=== PATIENT | male | born 1995 | race Caucasian/White ===

== ENCOUNTER 2017-01-06 10:58 | Emergency (ER) | payer MEDICAID, OTHER ==
[~2017-01-06] VITALS: Ht 172.7 cm; Wt 75.0 kg
[~2017-01-06 10:58] MED LIST: CLIN1CAP5 PO
[2017-01-06 11:11] VITALS: BP 152/77; PULSE 65; RESP 18; TEMP 98.6; O2SAT 97
[2017-01-06] MEDS ORDERED: FISH500C (11:15)
[2017-01-06] MEDS ORDERED: CYAN1TAB24 (11:15)
[2017-01-06 13:13] VITALS: BP 132/61; PULSE 73; RESP 20; TEMP 99; O2SAT 98
[2017-01-06 13:19] LABS: AUTOMATED NEUTROPHIL # 7.7 TH/MM3 (1.8-7.7); BASOPHIL # 0.1 TH/MM3 (0-0.2); BASOPHIL % 0.8 % (0.0-2.0); EOSINOPHIL # 0.2 TH/MM3 (0-0.4); EOSINOPHIL % 1.9 % (0.0-4.0); HEMATOCRIT 39.3 % (39.0-51.0); HEMO FLAGS DIFF FINAL; LYMPH % 16.4 % (9.0-44.0); LYMPHOCYTE # 1.7 TH/MM3 (1.0-4.8); MEAN CELL VOLUME 88.2 FL (80.0-100.0); MEAN CORPUSCULAR HEMOGLOBIN 29.7 PG (27.0-34.0); MEAN CORPUSCULAR HGB CONC 33.7 % (32.0-36.0); MONO % 5.8 % (0.0-8.0); NEUT % 75.1 % (16.0-70.0); PLATELET COUNT 215 TH/MM3 (150-450); RED BLOOD COUNT 4.46 MIL/MM3 (4.50-5.90); RED CELL DISTRIBUTION WIDTH 13.3 % (11.6-17.2); WHITE BLOOD COUNT 10.3 TH/MM3 (4.0-11.0)
[2017-01-06 13:29] LABS: AMPHETAMINE, URINE NEG (NEG); BARBITURATES, URINE NEG (NEG); COCAINE, URINE NEG (NEG)
[2017-01-06 13:30] LABS: ALT (GPT) 28 U/L (12-78); ANION GAP 7 MEQ/L (5-15); AST (GOT) 22 U/L (15-37); BICARBONATE 27.9 MEQ/L (21.0-32.0); BLOOD UREA NITROGEN 13 MG/DL (7-18); CHLORIDE 106 MEQ/L (98-107); GLOMERULAR FILTRATION RATE 92 ML/MIN (>89); POTASSIUM 3.9 MEQ/L (3.5-5.1); SODIUM (NA) 141 MEQ/L (136-145)
[2017-01-06 13:31] LABS: ALKALINE PHOSPHATASE 54 U/L (45-117); TOTAL BILIRUBIN ADULT 0.4 MG/DL (0.2-1.0)
--- NOTE | 2017-01-06 13:53 | PD ---
HPI Chief Complaint: Psychiatric Symptoms Time Seen by Provider: 13:50 Travel History International Travel<30 days: No Contact w/Intl Traveler<30days: No Traveled to known affect area: No History of Present Illness HPI 21-year-old male presents to the emergency Department under Aguila act by local police. According the Aguila act, the patient is making suicidal statements. The patient denies this. He does report cutting himself when he is angry. He denies any threat hurt himself. Patient states his tetanus immunization is up- to-date. He states that he has abrasions to the left chest from him hitting himself. He denies any illegal drug use. He does report history of depression and anger issues. [facility] Past Medical History Medical History: Denies Significant Hx Developmental Delay: No Diminished Hearing: No Immunizations Current: Yes Past Surgical History Surgical History: No Previous Surgery Social History Alcohol Use: No Tobacco Use: No Substance Use: No Allergies-Medications (Allergen,Severity, Reaction): Coded Allergies: Gluten (Verified Allergy, Intermediate, Nausea/Vomiting, 01/06/17) Reported Meds & Prescriptions Reported Meds & Active Scripts Active Reported B12 (Cyanocobalamin) 1,000 Mcg Tab 1,000 Fish Oil ([place]-3 Fatty Acids) 500 Mg Cap Review of Systems Except as stated in HPI: all other systems reviewed are Neg Physical Exam Narrative GENERAL: Well-developed well-nourished male patient, ambulatory. Afebrile. SKIN: Warm and dry. Patient has superficial abrasions noted to the left chest. HEAD: Normocephalic. Atraumatic. EYES: No scleral icterus. No injection or drainage. NECK: Supple, trachea midline. No JVD or lymphadenopathy. CARDIOVASCULAR: Regular rate and rhythm without murmurs, gallops, or rubs. RESPIRATORY: Breath sounds equal bilaterally. No accessory muscle use. Lungs sounds are clear to auscultation. GASTROINTESTINAL: Abdomen soft, non-tender, nondistended. MUSCULOSKELETAL: No cyanosis, or edema. PSYCHIATRIC: No delusional thought processes. No hallucinations. Data Data Last Documented VS Vital Signs Date Time Temp Pulse Resp B/P Pulse Ox O2 Delivery O2 Flow Rate FiO2 01/06/17 13:13 99.0 73 20 132/61 98 Room Air Orders Drug Screen, Random Urine (01/06/17 11:18) Complete Blood Count With Diff (01/06/17 12:20) Comprehensive Metabolic Panel (01/06/17 12:20) Psych Screen (01/06/17 12:20) Alcohol (Ethanol) (01/06/17 12:20) Labs Laboratory Tests Test 01/06/17 01/06/17 11:17 12:55 Urine Opiates Screen NEG Urine Barbiturates Screen NEG Urine Amphetamines Screen NEG Urine Benzodiazepines Screen NEG Urine Cocaine Screen NEG Urine Cannabinoids Screen NEG White Blood Count 10.3 TH/MM3 Red Blood Count 4.46 MIL/MM3 Hemoglobin 13.3 GM/DL Hematocrit 39.3 % Mean Corpuscular Volume 88.2 FL Mean Corpuscular Hemoglobin 29.7 PG Mean Corpuscular Hemoglobin 33.7 % Concent Red Cell Distribution Width 13.3 % Platelet Count 215 TH/MM3 Mean Platelet Volume 7.9 FL Neutrophils (%) (Auto) 75.1 % Lymphocytes (%) (Auto) 16.4 % Monocytes (%) (Auto) 5.8 % Eosinophils (%) (Auto) 1.9 % Basophils (%) (Auto) 0.8 % Neutrophils # (Auto) 7.7 TH/MM3 Lymphocytes # (Auto) 1.7 TH/MM3 Monocytes # (Auto) 0.6 TH/MM3 Eosinophils # (Auto) 0.2 TH/MM3 Basophils # (Auto) 0.1 TH/MM3 CBC Comment DIFF FINAL Differential Comment Sodium Level 141 MEQ/L Potassium Level 3.9 MEQ/L Chloride Level 106 MEQ/L Carbon Dioxide Level 27.9 MEQ/L Anion Gap 7 MEQ/L Blood Urea Nitrogen 13 MG/DL Creatinine 1.01 MG/DL Estimat Glomerular Filtration 92 ML/MIN Rate Random Glucose 162 MG/DL Calcium Level 8.9 MG/DL Total Bilirubin 0.4 MG/DL Aspartate Amino Transf 22 U/L (AST/SGOT) Alanine Aminotransferase 28 U/L (ALT/SGPT) Alkaline Phosphatase 54 U/L Total Protein 7.3 GM/DL Albumin 4.3 GM/DL Ethyl Alcohol Level LESS THAN 3 MG/DL MDM Medical Decision Making Medical Screen Exam Complete: Yes Emergency Medical Condition: Yes Medical Record Reviewed: Yes Differential Diagnosis Depression versus anxiety versus anger issues versus substance abuse versus psychosis versus bipolar disorder versus schizophrenia Narrative Course 21-year-old male presents to the emergency Department under Aguila act by local police. He has no medical complaints at this time. CBC is unremarkable. CMP is unremarkable. Urine drug screen is negative. Alcohol level is less than 3. Patient is medically cleared for psychiatric screening and disposition. Mental health screening discussed with the patient. Psychiatric screen ordered. Diagnosis Primary Impression: Excessive anger Additional Impression: Depression Qualified Code: F32.9 - Depression, unspecified depression type Additional Instructions: Patient is medically cleared for psychiatric screening and disposition. Disposition: 01 DISCHARGE HOME Condition: Stable Elin Woodard Jan 06, 2017 13:53
[2017-01-06 18:42] VITALS: BP 145/80; PULSE 60; RESP 18; O2SAT 98
[2017-01-06 22:24] VITALS: BP 135/81; PULSE 67; RESP 18; TEMP 97.5; O2SAT 99
[2017-01-07 02:22] VITALS: BP 164/92; PULSE 61; RESP 16; O2SAT 100
[2017-01-07 06:08] VITALS: BP 164/84; PULSE 50; RESP 18; O2SAT 99
[2017-01-07 09:18] VITALS: BP 164/92; PULSE 73; RESP 20; O2SAT 100
--- NOTE | 2017-01-07 09:33 | PD ---
History of Present Illness Chief Complaint: Psychiatric Symptoms Time Seen by Provider: 09:00 Travel History International Travel<30 Days: No Contact w/Intl Traveler<30days: No Known affected area: No Legal Status Legal Status: Aguila Act Aguila Act Signed By: Brianda Aguila Act Comment: BA signed by: SANGEETA Renee BAdge#[id number],Case# [id number] History of Present Illness: This is a 21-year-old male brought in under a Aguila act for making suicidal threats, according to his . He got into a verbal altercation with his and left the home. Police were called by the girlfriend and he was Aguila acted and brought to [place]. At this time he has been calm and cooperative overnight. He is denying suicidal or homicidal ideation, plan or intent. He plans to move a camper onto his father's property in order to stay separate from his . Apparently they have biological and step children together. The patient is able to verbally contract for safety at this time. He does admit to a history of anger issues and depression. However he is denying symptoms of depression at this time and is smiling and pleasant. He is willing to seek counseling on an outpatient basis. PFSH Past Medical History Medical History: Denies Significant Hx Developmental Delay: No Diminished Hearing: No Immunizations Current: Yes Past Surgical History Surgical History: No Previous Surgery Psychiatric History Psychiatric History Hx Psychiatric Treatment: Yes as a child History of Inpatient Treatment: Yes Guns or firearms in home: No Social History Hx Alcohol Use: No Hx Tobacco Use: No Hx Substance Use: No (De[place]) Hx of Substance Use Treatment: Yes Allergies-Medications (Allergen,Severity, Reaction): Coded Allergies: Gluten (Verified Allergy, Intermediate, Nausea/Vomiting, 01/06/17) Reported Meds & Prescriptions Reported Meds & Active Scripts Active Reported B12 (Cyanocobalamin) 1,000 Mcg Tab 1,000 Fish Oil ([place]-3 Fatty Acids) 500 Mg Cap Review of Systems ROS Limitations: Clinical Condition Except as stated in HPI: all other systems reviewed are Neg Exam Alert: Yes [place]: Person, Place, Date, Situation Mood: Calm Affect: Euthymic Speech: Clear, Logical Eye Contact: Normal Memory Intact: Immediate, Recent, Remote Delusions: No Insight/Judgement Mildly impaired but adequate. Most likely close to baseline. MDM Medical Decision Making Medical Record Reviewed: Yes Assessment/Plan This physician is lifting the patient's [place] act. He does not meet criteria for inpatient hospitalization at this time. He would like to go home and seek outpatient follow up. Orders Drug Screen, Random Urine (01/06/17 11:18) Complete Blood Count With Diff (01/06/17 12:20) Comprehensive Metabolic Panel (01/06/17 12:20) Psych Screen (01/06/17 12:20) Alcohol (Ethanol) (01/06/17 12:20) Diet Regular Basic (01/06/17 Dinner) Diet Regular Basic (01/07/17 Breakfast) Results Vital Signs Date Time Temp Pulse Resp B/P Pulse Ox O2 Delivery O2 Flow Rate FiO2 01/07/17 09:18 73 20 164/92 100 Room Air 01/07/17 06:08 50 18 164/84 99 Room Air 01/07/17 02:22 61 16 164/92 100 Room Air 01/06/17 22:24 97.5 67 18 135/81 99 Room Air 01/06/17 18:42 60 18 145/80 98 Room Air 01/06/17 13:13 99.0 73 20 132/61 98 Room Air 01/06/17 11:11 98.6 65 18 152/77 97 Laboratory Tests Test 01/06/17 01/06/17 11:17 12:55 Urine Opiates Screen NEG Urine Barbiturates Screen NEG Urine Amphetamines Screen NEG Urine Benzodiazepines Screen NEG Urine Cocaine Screen NEG Urine Cannabinoids Screen NEG White Blood Count 10.3 Red Blood Count 4.46 Hemoglobin 13.3 Hematocrit 39.3 Mean Corpuscular Volume 88.2 Mean Corpuscular Hemoglobin 29.7 Mean Corpuscular Hemoglobin 33.7 Concent Red Cell Distribution Width 13.3 Platelet Count 215 Mean Platelet Volume 7.9 Neutrophils (%) (Auto) 75.1 Lymphocytes (%) (Auto) 16.4 Monocytes (%) (Auto) 5.8 Eosinophils (%) (Auto) 1.9 Basophils (%) (Auto) 0.8 Neutrophils # (Auto) 7.7 Lymphocytes # (Auto) 1.7 Monocytes # (Auto) 0.6 Eosinophils # (Auto) 0.2 Basophils # (Auto) 0.1 CBC Comment DIFF FINAL Differential Comment Sodium Level 141 Potassium Level 3.9 Chloride Level 106 Carbon Dioxide Level 27.9 Anion Gap 7 Blood Urea Nitrogen 13 Creatinine 1.01 Estimat Glomerular Filtration 92 Rate Random Glucose 162 Calcium Level 8.9 Total Bilirubin 0.4 Aspartate Amino Transf 22 (AST/SGOT) Alanine Aminotransferase 28 (ALT/SGPT) Alkaline Phosphatase 54 Total Protein 7.3 Albumin 4.3 Ethyl Alcohol Level LESS THAN 3 Diagnosis Primary Impression: Adjustment disorder with mixed disturbance of emotions and con... Additional Impressions: Depression Excessive anger Referrals: [facility] (Out patient) as needed [facility] needed Mental Health and Substance Abuse Departure Forms: Tests/Procedures Patient Instructions: General Instructions, Mood Disorders (ED), Medical Clearance for Psychiatric Care (ED) Additional Instructions: DX: Adjustment Disorder with Mixed Disturbance of Emotion and Conduct Please return to ED if symptoms worsen Disposition: 01 DISCHARGE HOME Condition: Stable Problem Qualifiers Additional Impressions: Depression Qualified Code: F32.9 - Depression, unspecified depression type Harshil Lobato MD Jan 07, 2017 09:33
== END 2017-01-07 11:03 | disposition home or self-care (01) ==
LOC: NEPJ 10:58
DX: F43.25 Adjustment disorder with mixed disturbance of emotions and conduct (principal); F32.9 Major depressive disorder, single episode, unspecified
CPT/HCPCS: 80053; 80307; 80320; 85025; 99283